=== PATIENT | male | born 1980 | race Caucasian/White ===

== ENCOUNTER → 2017-12-30 13:29 | Outpatient (CLI) | payer OTHER, SELFPAY ==
--- NOTE | 2017-12-30 13:42 | XR_ITS ---
XR chest CHP 1V HISTORY: ITS.REASON: 3M CXR ORDERING PHYSICIAN: Jo Miguel PATIENT AGE: 37 years COMPARISON: None FINDINGS: The cardiomediastinal silhouette and pulmonary vascularity are within normal limits. The lungs are clear without infiltrates, suspicious nodules, or pleural effusions. Calcified node is present in the aortopulmonic window and in the subcarinal region. Calcified granuloma noted in the left lower lobe. There is minimal right apical pleural thickening nonspecific No acute bony abnormalities. IMPRESSION: 1. No acute finding. 2. Old granulomatous disease
== END ==
PROVIDERS: PCP Physician Assistant; Visit Provider Physician Assistant
DX: R05 Cough (principal)
CPT/HCPCS: 71010

== ENCOUNTER → 2018-10-08 09:12 | Outpatient (CLI) | payer BC, SELFPAY ==
[2018-10-08 12:47] LABS: Free T4 (Free Thyroxine) 0.52 ng/dl (0.76-1.46); Thyroid Stimulating Hormone 55.29 uIU/ml (0.358-3.740)
[2018-10-09 09:31] LABS: DHEA-Sulfate 181.8 ug/dL (102.6-416.3); LH 0.1 mIU/mL (1.7-8.6)
[2018-10-09 17:53] LABS: FSH 0.2 mIU/mL (1.5-12.4); Triiodothyronine (T3) Free 4.7 pg/mL (2.0-4.4); Vitamin D 25 Hydroxy 58.8 ng/mL (30.0-100.0)
[2018-10-10 18:03] LABS: Zinc 97 ug/dL (56-134)
[2018-10-12 03:12] LABS: Triiodothyronine (T3) Reverse 9.4 ng/dL (9.2-24.1)
== END ==
PROVIDERS: Visit Provider Nurse Practitioner Family
DX: E03.9 Hypothyroidism, unspecified (principal); E55.9 Vitamin D deficiency, unspecified; R79.89 Other specified abnormal findings of blood chemistry
CPT/HCPCS: 36415; 82626; 82652; 83001; 83002; 84439; 84443; 84481; 84482; 84630

== ENCOUNTER → 2018-10-27 08:43 | Outpatient (CLI) | payer BC, SELFPAY ==
--- NOTE | 2018-10-27 08:49 | CT_ITS ---
CT abdomen pelvis w con CLINICAL INDICATION: Mid abdominal pain, abdominal wall hernia, palpable abnormality along the right abdominal wall ITS.REASON: ABD WALL HERNIA ORDERING PHYSICIAN: Nichole Lee APRN PATIENT AGE: 38 years COMPARISON: None TECHNIQUE: Contrast Used:75ml Optiray 350 Oral Contrast: 450ml Redicat Axial images obtained with sagittal and coronal reformats. All CT scans at the facility use one or more dose reduction, viz: automated exposure control, ma/kV adjustment per patient size (including targeted exams where dose is matched to indication, i.e. head), or iterative reconstruction technique. FINDINGS: Lower thorax: There is a patchy area of atelectasis or fibrosis within the right middle lobe ABDOMEN: Liver: There are several hypoattenuating lesions of the liver the largest in the left hepatic lobe measuring 14 mm consistent with hepatic cysts Gallbladder: Nondistended. No radio opaque stones. Pancreas: No masses or peripancreatic fluid collections. Spleen: Unremarkable. Adrenals: Unremarkable Kidneys/ureters: No masses. No renal calculi. No hydronephrosis. No perinephric fluid collections. No ureteral dilatation or obvious ureteral calculi. Stomach bowel: Nondistended. No obvious mass or thickening. Appendix: No evidence of appendicitis. PELVIS: Reproductive: Unremarkable Bladder: Nondistended. No obvious stones or masses. ABDOMEN & PELVIS: Peritoneum: No abnormal fluid collections. No obvious inflammatory changes. No free air. Lymph nodes: No enlarged lymph nodes apparent. Vasculature: No evidence of abdominal aortic aneurysm. No retroperitoneal hemorrhage evident. Bones: A sclerotic focus involves the right femoral neck and may be due to a bone island. Soft tissues: There are bilateral fat-containing inguinal hernias. A BB is used to rebel the area of clinical concern in the right mid abdominal region. No abnormalities are evident at this area. IMPRESSION: No acute intra-abdominal or pelvic pathology apparent Hepatic cysts. Small bilateral hernias containing fat
== END ==
PROVIDERS: PCP Nurse Practitioner Family; Visit Provider Nurse Practitioner Family
DX: K43.9 Ventral hernia without obstruction or gangrene (principal)
CPT/HCPCS: 74177; Q9967

== ENCOUNTER 2021-07-17 09:50 | Emergency (ER) | payer BC, SELFPAY ==
[2021-07-17 11:43] LABS: UTC Influenza A Antigen Negative (Negative); UTC Influenza B Antigen Negative (Negative)
[2021-07-17 11:44] VITALS: BP 108/67; PULSE 98; RESP 18; TEMP 37.9; O2SAT 96; BMI 27.7
--- NOTE | 2021-07-17 11:49 | HMH.EDUTC ---
[facility] [place] Clinical Impression: URI (upper respiratory infection) Qualifiers: URI type: unspecified URI Qualified Code(s): J06.9 - Acute upper respiratory infection, unspecified Disposition: Home, Self-Care Condition on Discharge: Good Instructions: Sore Throat, DI for Fever (Symptom) -- Adult Additional Instructions: *Monitor Temp, Over the counter Motrin or Tylenol as directed/as needed Tylenol every 4 hours and Motrin every 6 hours (as long as your family doctor has told you that you can take it) for fever or pain. and straight to ER if unable to lower temp less than 101.0 after medication given *Warm salt water gargles may help to soothe the throat *Throat Lozenges *Warm fluids like tea with honey may help to soothe the throat *Sleep elevated *Humidifier/Vaporizer *Flonase 2 sprays in each nostril daily but be aware that it may take 2-3 days before you notice improvement *Bromfed may cause drowsiness. Know how it effects you (your child) before driving, caring for small child, or sending your child to school. Not other antihistamines/allergy medications while taking bromfed Your throat swab was sent for culture. Those results are typically sent to your primary care. Be sure to follow up in 2-3 days with your family doctor/primary care physician if no improvement so they can review those result and treat if necessary. If you don?t have a primary care doctor, I recommend you get one but in the mean time, you will have to return to a walk in clinic Follow up IMMEDIATELY for new or worsening symptoms or no Noticeable improvement over the next 48-72 hours. 911 for difficulty breathing or swallowing Prescriptions: methylPREDNISolone [Medrol 4mg tab] 4 mg PO DIRECTED #21 tab Transmission Status: Pending to [facility] Azithromycin [Z-Sim 250mg Tab] 250 mg PO DIRECTED #6 tab Transmission Status: Pending to [facility] Ondansetron [Zofran 4mg ODT] 4 mg PO TIDP PRN #10 tab PRN Reason: Nausea Transmission Status: Pending to [facility] Referrals: Ricci Bocanegra MD [Primary Care Provider] - As needed Forms: Work/School Release Time of Disposition: 12:01 Medical Decision Making - Glenn Inquiry Pt receiving controlled substance: No Glenn was queried for this patient: No Vital Signs: 07/17/21 11:44 Temperature 100.3 F H Temperature Source Oral Pulse Rate [Left] 98 H Respiratory Rate 18 Blood Pressure [Right Arm] 108/67 L Blood Pressure Mean [Right Arm] 80 02 Sat by Pulse Oximetry 96 - Lab Data Lab results reviewed: Yes: I reviewed the patient's lab results. Lab Results 07/17/21 11:27: Influenza Type A Ag Negative, Influenza Type B Ag Negative [facility] [place] - General Stated complaint: body aches, runny nose, fever, Time Seen by Provider: 07/17/21 11:49 Mode of Arrival: Ambulatory Source of Information: Patient Limitations: No Limitations Description of Symptoms (Recalled from Triage Doc. by RN): pt states he feels like he has the flu. pt c/o fever, congestion, RAPP and drainage. HEENT Symptoms (Recalled from RN notes): Yes Resp Symptoms (Recalled from RN notes): No Skin Symptoms (Recalled from RN notes): No MS Symptoms (Recalled from RN notes): No Functional Status (Recalled from RN notes): wnl - History of Present Illness Provider Complaint: Patient states that he feels like he may have the flu or something States that he has been having body aches, chills, fever, sore throat, N/V that started this morning States that as the day went on he has continued to feel worse so he came in to get checked out - Related Data Previous Rx's Medication Instructions Recorded Azithromycin [Z-Sim 250mg Tab] 250 mg PO DIRECTED #6 tab 07/17/21 Ondansetron [Zofran 4mg ODT] 4 mg PO TIDP PRN #10 tab 07/17/21 methylPREDNISolone [Medrol 4mg 4 mg PO DIRECTED #21 tab 07/17/21 tab] Allergies Allergy/AdvReac Type Severity Reaction Status Date / Time No Fiona
[2021-07-17 11:59] LABS: UTC Strep Screen (Rapid) Negative (Negative)
[2021-07-17 12:41] VITALS: BP 108/67; PULSE 98; RESP 18; TEMP 37.9
== END 2021-07-17 12:42 | disposition home or self-care (01) ==
PROVIDERS: Emergency Provider Nurse Practitioner; PCP Emergency Medicine
DX: J06.9 Acute upper respiratory infection, unspecified (principal)
CPT/HCPCS: 87804; 87880; 99212; G0463

== ENCOUNTER 2024-07-20 08:00 | Outpatient (RCR) | payer OTHER, BC, SELFPAY | END 2024-07-20 23:59 | disposition home or self-care (01) | LOC: PT 08:00 | PROVIDERS: Visit Provider Nurse Practitioner | DX: M79.602 Pain in left arm (principal); M54.2 Cervicalgia | CPT/HCPCS: 97110; 97140; 97163 ==

== ENCOUNTER 2024-08-24 08:00 | Outpatient (RCR) | payer OTHER, BC, SELFPAY | END 2024-08-24 13:00 | disposition home or self-care (01) | LOC: PT 08:00 | PROVIDERS: Visit Provider Nurse Practitioner | DX: M79.602 Pain in left arm (principal); M54.2 Cervicalgia | CPT/HCPCS: 97012; 97110; 97112 ==